=== PATIENT | female | born 1975 | race Caucasian/White ===

== ENCOUNTER → 2017-05-11 | Outpatient (CLI) | payer OTHER ==
[~2017-05-11] MED LIST: BUPR150T15 PO; BUSP5TAB PO; CETI10TA22 PO; LISI-338 PO
[2017-05-11 14:32] LABS: BASO # 0.1 x10^3/uL (0.0-0.2); BASO % 1 % (0-3); EOS % 3 % (0-3); HEMATOCRIT 40.8 % (36.0-47.0); HEMOGLOBIN 13.5 g/dL (12.0-15.5); LYMPH # 1.9 x10^3/uL (1.0-4.8); LYMPH % 25 % (24-48); MEAN CORPUSCULAR HEMOGLOBIN 28 pg (25-35); MEAN CORPUSCULAR HGB CONC 33 g/dL (31-37); MEAN CORPUSCULAR VOLUME 86 fL (79-100); MONO % 12 % (0-9); NEUT % 60 % (31-73); PLATELET COUNT 291 x10^3/uL (140-400); RED BLOOD COUNT 4.74 x10^6/uL (3.50-5.40); RED CELL DISTRIBUTION WIDTH 13.9 % (11.5-14.5); WHITE BLOOD COUNT 7.7 x10^3/uL (4.0-11.0)
--- NOTE | 2017-05-11 14:33 | EKG ---
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
[2017-05-11 14:49] LABS: ALBUMIN 3.8 g/dL (3.4-5.0); ALBUMIN/GLOBULIN RATIO 1.1 (1.0-1.7); CALCIUM 8.9 mg/dL (8.5-10.1); CREATININE 0.8 mg/dL (0.6-1.0); GFR 78.3; POTASSIUM 3.6 mmol/L (3.5-5.1); TOTAL BILIRUBIN 0.3 mg/dL (0.2-1.0); TOTAL PROTEIN 7.4 g/dL (6.4-8.2)
--- NOTE | 2017-05-11 15:14 | RAD ---
Indication: Preop for hysterectomy. Time of exam 1458 hours. No prior studies are available for comparison. FINDINGS: The heart size is normal. The lungs are clear. No pleural effusion or pneumothorax is identified. The pulmonary vascularity is normal. IMPRESSION: No acute abnormality detected.
== END | disposition home or self-care (01) ==
LOC: SURGPAT 13:54
PROVIDERS: ATTEND Obstetrics & Gynecology
DX: Z01.818 Encounter for other preprocedural examination (principal)
CPT/HCPCS: 36415; 71020; 80053; 85025; 93005

== ENCOUNTER 2017-05-20 06:47 | Observation (INO) | payer OTHER ==
[~2017-05-20] VITALS: Ht 162.6 cm; Wt 82.1 kg
[~2017-05-20 06:47] MED LIST changes: +CLINDAMYCIN 900MG PREMIX 50 ML IV ONE
[2017-05-20] MEDS ORDERED: IV RINGERS,LACTATED 1000ML 1,000 ML IV SCH ×3 (07:30→07:31)
[2017-05-20] MEDS ORDERED: HYDROmorphone 2 MG/ML VIAL IV PRN (07:45)
[2017-05-20] MEDS ORDERED: MORPHINE SULFATE 2 MG/ML DISP.SYRIN. IV PRN ×2 (07:45→10:15)
[2017-05-20] MEDS ORDERED: PROCHLORPERAZINE 10 MG/2 ML VIAL. IV PRN (07:45)
[2017-05-20] MEDS ORDERED: LIDOCAINE 1% PF 2 ML VIAL. ID PRN (07:45)
[2017-05-20] MEDS ORDERED: fentaNYL PF VIAL 100 MCG/2 ML VIAL IV PRN ×2 (07:45)
[2017-05-20] MEDS ORDERED: METHYLENE BLUE 1% 10 ML VIAL. ONE (08:01)
[2017-05-20] MEDS ORDERED: BUPIVAC MPF-EPI 0.5%-1:200000 10 ML VIAL. ONE (08:01)
[2017-05-20] MEDS ORDERED: ESTROGENS, CONJ VAGINAL CREAM 30GM TUBE. ONE (08:01)
[2017-05-20] MEDS ORDERED: BUPIVAC MPF-EPI 0.5%-1:200000 30 ML VIAL. ONE (08:01)
[2017-05-20] MEDS ORDERED: PROPOFOL 0 ML IV ONE ×2 (08:03→08:06)
[2017-05-20] MEDS ORDERED: LIDOCAINE 2% PF Vial for OR 5 ML VIAL. ONE (08:04)
[2017-05-20] MEDS ORDERED: ROCURONIUM 50 MG/5 ML VIAL. ONE ×2 (08:04→09:38)
[2017-05-20] MEDS ORDERED: ONDANSETRON PF 4 MG/2 ML VIAL. ONE (08:05)
[2017-05-20] MEDS ORDERED: fentaNYL PF VIAL 100 MCG/2 ML VIAL ONE ×2 (08:05→09:10)
[2017-05-20] MEDS ORDERED: KETAMINE HCL 500 MG/10 ML VIAL. ONE (08:05)
[2017-05-20] MEDS ORDERED: MIDAZOLAM HCL/PF 2 MG/2 ML VIAL. ONE (08:05)
[2017-05-20] MEDS ORDERED: DEXAMETHASONE SOD PHOS 20 MG/5 ML VIAL. ONE (08:05)
[2017-05-20] MEDS ORDERED: PROPOFOL 20 ML IV ONE (08:06)
[2017-05-20] MEDS ORDERED: KETOROLAC 30 MG/ML INJ FOR OR. INJ ONE ×2 (08:06→10:47)
[2017-05-20 08:47] LABS: NEG OBC UR NEG; POS OBC UR POS
[2017-05-20] MEDS ORDERED: GLYCOPYRROLATE 1 MG/5 ML VIAL. ONE (08:47)
[2017-05-20] MEDS ORDERED: NEOSTIGMINE METHYLSULFATE 5 MG/5 ML SYRINGE. ONE (08:47)
[2017-05-20] MEDS ORDERED: diphenhydrAMINE 50 MG/ML VIAL ONE (08:47)
[2017-05-20] MEDS ORDERED: NALOXONE 0.4 MG/ML VIAL. IV PRN (10:15)
[2017-05-20] MEDS ORDERED: MAG HYDROX/ALUMINUM HYD/SIMETH 30 ML ORAL.SUSP PO PRN (10:15)
[2017-05-20] MEDS ORDERED: diphenhydrAMINE HCL 25 MG CAPSULE PO PRN (10:15)
[2017-05-20] MEDS ORDERED: 0.9 % SODIUM CHLORIDE 10 ML DISP.SYRIN. IV PRN (10:15)
[2017-05-20] MEDS ORDERED: LACTULOSE 20 GM/30 ML SOLUTION. PO PRN (10:15)
[2017-05-20] MEDS ORDERED: SIMETHICONE 80 MG TAB.CHEW PO PRN (10:15)
[2017-05-20] MEDS ORDERED: oxyCODONE/APAP 5/325 1 TAB TABLET PO PRN (10:15)
[2017-05-20] MEDS ORDERED: ZOLPIDEM 5 MG TABLET. PO PRN (10:15)
[2017-05-20] MEDS ORDERED: diphenhydrAMINE 50 MG/ML VIAL IV PRN (10:15)
[2017-05-20] MEDS ORDERED: ONDANSETRON PF 4 MG/2 ML VIAL. IV PRN (10:15)
[2017-05-20] MEDS ORDERED: MAGNESIUM HYDROXIDE 2,400 MG/30 ML ORAL.SUSP. PO PRN (10:15)
[2017-05-20] MEDS ORDERED: CALCIUM CARBONATE 500 MG TAB.CHEW PO PRN (10:15)
[2017-05-20] MEDS ORDERED: KETOROLAC 30 MG/ML INJ. IV PRN (10:15)
--- NOTE | 2017-05-20 10:22 | PDOC ---
BRIEF OPERATIVE NOTE Date: May 20, 2017 Pre-Op Diagnosis menorrhagia Post-Op Diagnosis same Procedure Performed LAVH, bilateral salpingectomy Surgeon Dr. Willow Schumacher Turnstile Attendant Dr. Monse Urbano Anesthesiologist Dr. Quiroz Anesthesia Type: General Blood Loss 50cc IV Fluid 1400cc Urine Output 100cc Specimens Obtained cervix, uterus, bilateral tubes Findings right sided omental adhesions to anterior abdominal wall, RV uterus, normal bilateral tubes and ovaries Complications none Operative Note [id number] WILLOW SCHUMACHER MD May 20, 2017 10:22
--- NOTE | 2017-05-20 10:27 | RAD ---
Portable abdomen, 05/20/2017: History: Postop evaluation A single AP view centered to the right of midline was obtained. An NG tube extends into the distal aspect of the stomach. The abdominal gas pattern is unremarkable. There is no evidence of a retained surgical instrument, needle or radiopaque sponge on this single view.
[2017-05-20 12:02] VITALS: BP 115/70
[2017-05-20 12:17] VITALS: BP 109/74
[2017-05-20 12:40] VITALS: BP 122/74
[2017-05-20 13:20] VITALS: BP 108/69
[2017-05-20 14:41] VITALS: BP 108/73
[2017-05-20] MEDS: HYDROcodone/APAP 5/325MG 1 TAB TABLET PO PRN (21:41)
--- NOTE | 2017-05-20 22:02 | OP ---
DATE OF SURGERY: 05/20/2017 PREOPERATIVE DIAGNOSIS: Menorrhagia. POSTOPERATIVE DIAGNOSIS: Menorrhagia. PROCEDURE: Laparoscopic assisted vaginal hysterectomy, bilateral salpingectomy. SURGEON: Gerhard Manley MD TAG MAKER: Dr. Monse Urbano. ANESTHESIA: General anesthesia. ANESTHESIOLOGIST: Dr. Quiroz. BLOOD LOSS: 50 mL. URINE OUTPUT: 100 mL, clear via Kowalski catheter. FLUIDS: 1400 mL of crystalloid. SPECIMENS: Cervix, uterus, bilateral tubes. COMPLICATIONS: None. FINDINGS: Right-sided omental adhesions to the anterior abdominal wall, a small retroverted uterus, normal bilateral tubes and ovaries and some left-sided adhesions of the descending colon above the IP out of our way. DESCRIPTION OF PROCEDURE: The patient was taken to the operating room where general anesthesia was placed. The patient was placed in a dorsal lithotomy position in [facility]. The patient's abdomen and vagina were prepped and draped in the normal sterile fashion and a Kowalski catheter had been inserted under sterile technique. After a timeout was performed, a bivalve speculum was placed in the patient's vagina. A single tooth tenaculum was used to grasp the anterior lip of the cervix. A 10 mL of 0.5% Marcaine with epinephrine was used to circumferentially inject around the cervix for both hemodissection and hemostatic purposes later. The Valtchev uterine manipulator was then placed through the endocervical os, locked on the single tooth tenaculum and the bivalve speculum was then removed. Top gloves were discarded and changed and attention was turned to the abdomen where a small infraumbilical skin incision was made with the scalpel over a previous existing scar. A curved Coretta was used to dissect through the subcuticular layer to the fascia. The 5 mm Visiport was used to directly enter the abdominal cavity and opening patient pressure was 3-4 mmHg. Direct abdominal placement was confirmed via the laparoscope. The cuff was insufflated with 2 mL of air. The patient was placed in Trendelenburg position and right and left lower quadrant ports were placed under direct visualization atraumatically after transilluminating the abdomen, making a small incision with the scalpel and placing the disposable 5 mm atraumatic trocars in and insufflating those cuffs as well. I tried to put the left one over where it looked like there was a previous existing scar as well. There were some adhesions on the right side that we had to steer clear of. These were taken down at the end sharply and bluntly. They were omental adhesions. There was a little bit of bowel at the bottom, but very high at the abdominal wall was omental pulling them down and cauterizing and cutting with the LigaSure and then peeling them off the anterior abdominal wall and upper right sidewall. But there was a small retroverted uterus, normal bilateral tubes and ovaries. So, the LigaSure was used to cauterize and cut the left round ligament, creating a window in the mesosalpinx, using the monopolar tip hook to create the bladder flap sharply and then elevating the left tube and ovary. The ovary was normal, so going above the ovary, below the tube in the mesosalpinx, cauterizing and cutting, taking the tube, leaving the ovary and then crossing the left uterine ovarian pedicle, cauterizing and cutting with the LigaSure again and going down and obtaining the uterines on the left side. This was all done identically on the right side, first starting at the round ligament, cauterizing and cutting, going down and meeting that bladder flap anteriorly, again elevating the right tube and ovary, ovary was normal, so again staying above the ovary, below the tube, taking the tube, cauterizing and cutting in the mesosalpinx and then crossing the right uterine ovarian pedicle, again leaving the right ovary, then going down and obtaining the uterines on the right. At this point, the uterus was blanched and free, crossing contralaterally, hugging the cervix, staying vertical, down to the level of the uterosacral through the cardinal and broad ligaments, cauterizing and cutting with the LigaSure again. At this point, all instruments were removed from the abdomen. Attention was then turned vaginally where the legs were elevated. The single tooth and Valtchev were removed. A short weighted speculum was placed in the patient's vagina. Thyroid Pawan clamps were placed on the anterior and posterior lips of the cervix respectively. A scalpel was used to make a circumferential incision in the cervix. A Ray-Irwin 4 x 4 was used to gently push up the anterior bladder peritoneum and the anterior cul-de-sac was digitally and bluntly entered. The 4 x 4 was then removed and passed off. A curved Sary was placed in the anterior cul-de-sac. The cervix was elevated. The posterior cul-de-sac was sharply entered with the Brown scissors. A 0 Vicryl stitch was used to secure the posterior peritoneum to the vaginal cuff, tagging it with a straight Coretta clamp, cutting and passing the needle off. The short weighted speculum was removed and replaced with a long weighted Farnaz speculum. At this point, curved Hardik clamps x 2 were placed on the left uterosacral ligament. They were doubly clamped with curved Heaneys, cut with the Brown scissors and suture ligated x 2 with 0 Vicryl. Again, the second one was taken through the vaginal cuff, securing the uterosacral ligament to vaginal cuff, tagging it with a straight Coretta clamp, cutting and passing the needle off. This was done exactly the same on the right side, double clamping the uterosacrals with curved Heaneys, cutting with Brown scissors, suture ligating x 2 with 0 Vicryl, taking the second one through the vaginal cuff, cutting and passing the needle off. The remaining pedicles on both sides were delineated with a right angle clamp and the vaginal LigaSure Max was used to cauterize and then Brown scissors were used to cut these after they were cauterized. The cervix, uterus, bilateral tubes were passed off in total for permanent pathology. A sponge stick was used to examine the pedicles. Once hemostasis was assured, the anterior bladder peritoneum was grasped with a long Allis. The long Farnaz was removed and replaced with a short weighted speculum. A 2-0 Vicryl was taken through the anterior bladder peritoneum, left uterosacral ligament, posterior peritoneum and right uterosacral ligament, thus closing the peritoneum in a pursestring like fashion. The right and left uterosacral tags were clipped. At this point, a full length 2-0 Vicryl was used to close the cuff in an anterior to posterior running locked fashion and it was tied to that posterior cuff tag. It was hemostatic from below. All instruments were removed. At this point, a second look was taken from above. She was placed back in Trendelenburg. The gas was reinsufflated into the abdominal cavity. Copious irrigation revealed hemostasis over the ovaries and vaginal cuff, right and left pericolic gutters were examined. This is where the adhesions were taken down to the right anterior abdominal wall near the right port. Once this was done and hemostasis was assured, Tisseel was placed over the cuff and the right and left lower quadrant ports. The gas was released from the cuff and those were removed under direct visualization, these were hemostatic. Gas was released from the umbilical port. All three port sites were closed with 4-0 nylon at the level of the skin and injected with a total of 10 mL of 0.5% Marcaine with epinephrine. The patient should be being awakened from anesthesia. I do believe they had to do an x-ray due to no count being done on the vaginal instruments at the beginning, so she was awaiting an x-ray and then being woke up, but there were no complications to the procedure. GERHARD MANLEY MD DR: EDILBERTO/lisandra JOB#: [id number] / [id number]
[2017-05-20 23:00] VITALS: BP 122/68
[2017-05-21 06:09] VITALS: BP 106/60
[2017-05-21 08:02] LABS: CALCIUM 8.4 mg/dL (8.5-10.1); CREATININE 0.7 mg/dL (0.6-1.0); GFR 91.3; POTASSIUM 3.6 mmol/L (3.5-5.1)
[2017-05-21] MEDS: HYDROcodone/APAP 5/325MG 1 TAB TABLET PO PRN (08:19)
--- NOTE | 2017-05-21 08:56 | PDOC ---
SURGICAL PROGRESS NOTE Subjective Doing well without complants. Voiding well without catheter, tolerating regular diet Vital Signs Vital Signs Date Time Temp Pulse Resp B/P (MAP) Pulse Ox O2 Delivery O2 Flow Rate FiO2 05/21/17 08:19 18 Room Air 05/21/17 06:09 98.3 69 106/60 (75) 98.3 05/20/17 12:40 97 05/20/17 11:09 10 I&O Intake and Output 05/21/17 06:59 Intake Total 1950 ml Output Total 150 ml Balance 1800 ml Intake IV Total 1950 ml Output Urine Total 100 ml Estimated Blood Loss 50 ml PATIENT HAS A SANCHES: No General: Alert, Oriented X3, Cooperative, No acute distress HEENT: Atraumatic Heart: Regular rate Abdomen: Soft, No tenderness, Other (all port sites c/d/i) Extremities: No clubbing, No cyanosis, No edema Skin: No rashes, No breakdown Neuro: Normal speech Psych/Mental Status: Mental status NL, Mood NL Labs Laboratory Tests Test 05/20/17 07:05 05/21/17 07:15 Urine Test Negative (NEG) Hematocrit 34.6 % (36.0-47.0) Sodium Level 139 mmol/L (136-145) Potassium Level 3.6 mmol/L (3.5-5.1) Chloride Level 105 mmol/L (98-107) Carbon Dioxide Level 27 mmol/L (21-32) Anion Gap 7 (6-14) Blood Urea Nitrogen 12 mg/dL (7-20) Creatinine 0.7 mg/dL (0.6-1.0) Estimated GFR (Cockcroft-Gault) 91.3 Glucose Level 101 mg/dL (70-99) Calcium Level 8.4 mg/dL (8.5-10.1) Laboratory Tests Test 05/21/17 07:15 Hematocrit 34.6 % (36.0-47.0) Sodium Level 139 mmol/L (136-145) Potassium Level 3.6 mmol/L (3.5-5.1) Chloride Level 105 mmol/L (98-107) Carbon Dioxide Level 27 mmol/L (21-32) Anion Gap 7 (6-14) Blood Urea Nitrogen 12 mg/dL (7-20) Creatinine 0.7 mg/dL (0.6-1.0) Estimated GFR (Cockcroft-Gault) 91.3 Glucose Level 101 mg/dL (70-99) Calcium Level 8.4 mg/dL (8.5-10.1) I have reviewed the following labs, vitals, nursing Cardiovascular: HTN Pulmonary: No pertinent hx GI: No pertinent hx Heme/Onc: No pertinent hx Psych: No pertinent hx Endocrine: No pertinent hx Dermatology: No pertinent hx Assessment/Plan POD #1 s/p LAVH with bilateral salpingectomy and adhesiolysis Routine PO care d/c to home today NPV x [address] while on narcotic pain pills light/limited activity x 2 weeks Percocet--written OTC ibuprofen as needed is fine to alternate with narcotic pain pills keep scheduled follow up with me next week call or return sooner for any other questions or concerns not limited to but including pain unrelieved with pain pills, increased or unexplained vaginal bleeding or T>100.4 Problems: GERHARD SCHUMACHER MD May 21, 2017 08:56
--- NOTE | 2017-05-21 08:58 | PDOC3 ---
Discharge Summary Visit Information Date of Admission: May 20, 2017 Date of Discharge: May 21, 2017 Admitting Diagnosis Comment: menorrhagia with history of endometriosis Brief Hospital Course Allergies Allergies Coded Allergies Type Severity Reaction Last Updated Verified Penicillins Adverse Reaction Intermediate NAUSEA AND VOMITING 05/20/17 Yes Vital Signs Vital Signs Date Time Temp Pulse Resp B/P (MAP) Pulse Ox O2 Delivery O2 Flow Rate FiO2 05/21/17 08:19 18 Room Air 05/21/17 06:09 98.3 69 106/60 (75) 98.3 05/20/17 12:40 97 05/20/17 11:09 10 Lab Results Laboratory Tests Test 05/20/17 07:05 05/21/17 07:15 Urine Test Negative (NEG) Hematocrit 34.6 % (36.0-47.0) Sodium Level 139 mmol/L (136-145) Potassium Level 3.6 mmol/L (3.5-5.1) Chloride Level 105 mmol/L (98-107) Carbon Dioxide Level 27 mmol/L (21-32) Anion Gap 7 (6-14) Blood Urea Nitrogen 12 mg/dL (7-20) Creatinine 0.7 mg/dL (0.6-1.0) Estimated GFR (Cockcroft-Gault) 91.3 Glucose Level 101 mg/dL (70-99) Calcium Level 8.4 mg/dL (8.5-10.1) Laboratory Tests Test 05/21/17 07:15 Hematocrit 34.6 % (36.0-47.0) Sodium Level 139 mmol/L (136-145) Potassium Level 3.6 mmol/L (3.5-5.1) Chloride Level 105 mmol/L (98-107) Carbon Dioxide Level 27 mmol/L (21-32) Anion Gap 7 (6-14) Blood Urea Nitrogen 12 mg/dL (7-20) Creatinine 0.7 mg/dL (0.6-1.0) Estimated GFR (Cockcroft-Gault) 91.3 Glucose Level 101 mg/dL (70-99) Calcium Level 8.4 mg/dL (8.5-10.1) Brief Hospital Course Ms. Lees is a 41 old female who presented with menorrhagia. She underwent an LAVH with bilateral salpingectomy without complications yesterday. She has had an unremarkable postoperative course. She is voiding well, ambulating well and tolerating a regular diet with PO pain medications. She will be discharged to home today Discharge Information Condition at Discharge: Improved Follow Up: Weeks Disposition/Orders: D/C to Home Scheduled Bupropion Hcl (Wellbutrin Xl), 150 MG PO BID, (Reported) Buspirone Hcl (Buspirone Hcl), 5 MG PO BID, (Reported) Cetirizine Hcl (Zyrtec), 10 MG PO DAILY, (Reported) Lisinopril (Lisinopril), 5 MG PO DAILY, (Reported) Patient Instructions Patient Instructions POD #1 s/p LAVH with bilateral salpingectomy and adhesiolysis Routine PO care d/c to home today NPV x [address] while on narcotic pain pills light/limited activity x 2 weeks Percocet--written OTC ibuprofen as needed is fine to alternate with narcotic pain pills keep scheduled follow up with me next week call or return sooner for any other questions or concerns not limited to but including pain unrelieved with pain pills, increased or unexplained vaginal bleeding or T>100.4 GERHARD SCHUMACHER MD May 21, 2017 08:58
[2017-05-21 09:55] VITALS: BP 125/74
--- NOTE | 2017-05-21 17:32 | PATHOLOGY ---
PATHOLOGY REPORT * * * * * * * * FINAL DIAGNOSIS: Uterus and bilateral fallopian tubes, laparoscopic assisted vaginal hysterectomy with bilateral salpingectomy: - Leiomyomas (2), uterine corpus, the largest measuring 2.4 cm (uterine weight 129 grams). - Chronic cervicitis with focal squamous metaplasia. - Proliferative endometrium. - Bilateral fallopian tubes showing no significant abnormalities. COMMENT: There is no evidence of hyperplasia or malignancy. (JPM:db; 05/20/2017) REPORT ELECTRONICALLY SIGNED BY: Rc Christy M.D. DATE/TIME: 05/21/2017 17:31 * * * * * * * * GROSS PATHOLOGY: Received in formalin labeled "Neisha Kuhn, uterus, cervix, bilateral fallopian tubes" is a hysterectomy specimen consisting of a uterus with attached fallopian tubes and without ovaries. The uterus weighs 129 g and measures 10.7 cm from fundus to cervix, 6.0 cm from cornu to cornu, and 3.8 cm from anterior to posterior. The serosa is pink red and smooth. The cervical os is ovoid and measures 1.5 x 1.3 cm, and the ectocervix is pink-red and glistening with possible surgical clamp artifact at the os. The cervix is probe patent and the uterus is opened to reveal a 3.3 x 2.6 cm endometrial cavity and a 3.5 x 1.2 cm endocervical canal. The average endometrial thickness measures 0.1 cm and the average myometrial thickness measures 1.7 cm. The uterus is serially sectioned to reveal 2 leiomyomata measuring 2.4 and 1.4 cm in greatest dimension. No hemorrhage or necrosis is identified. The right fimbriated fallopian tube measures 5.2 cm in length and 0.7 cm in diameter. The left fimbriated fallopian tube measures 4.7 cm in length and 0.7 cm in diameter. The serosal surfaces are pink red and smooth and the fallopian tubes are serially sectioned to reveal a pinpoint lumen. No gross abnormalities are identified within the specimen. Mop Maker sections are submitted as follows: A1 12:00 cervix A2 6:00 cervix A3 anterior endomyometrium A4 posterior endomyometrium A5 apprenticeship training representative right fallopian tube A6 apprenticeship training representative left fallopian tube ([facility] [place]; 05/20/2017) INITIAL CPT CODE(S): A; 24589 Professional services performed [place] [address] Technical services performed by [facility] at [address] [place] [address], [address], [place] [address]. SPECIMEN(S) RECEIVED: A.Uterus, cervix, bilateral fallopian tubes CLINICAL HISTORY: Menorrhagia PATIENT: NEISHA KUHN /AGE: 5 1975 (Age: 41) PATIENT #: [id number] ALT CASE #: SPECIMEN COLLECTION DATE: 05/20/2017 SPECIMEN RECEIVED DATE: 05/20/2017 [facility] - [address] [place] [address] - PHONE: [phone] * * * END OF REPORT * * *
== END 2017-05-21 11:05 | disposition home or self-care (01) ==
LOC: SURG 06:47 → 3 NORTH 10:50
PROVIDERS: ADMIT Obstetrics & Gynecology; ATTEND Obstetrics & Gynecology
DX: N92.0 Excessive and frequent menstruation with regular cycle (principal); K66.0 Peritoneal adhesions (postprocedural) (postinfection); N85.4 Malposition of uterus
CPT/HCPCS: 36415; 58552; 74000; 80048; 81025; 85014; 86850; 86900; 86901; 88307; 96374; C1769; G0378; G0379; J1100; J1200; J1885; J1956; J2250; J2405; J2704; J2710; J3010; J3490; J7030; Q9968; J2001